=== PATIENT | female | born 1940 | race Caucasian/White ===

== ENCOUNTER 2016-10-13 12:21 | Day surgery (SDC) | payer MEDICARE, OTHER ==
[~2016-10-13 12:21] MED LIST: ACETAMINOPHEN 325 MG TABLET PO PRN; ACETYLCHOLINE CHLORIDE 20 DROP KIT IO PRN; BUPIVACAINE HCL/PF 30 ML VIAL IJ PRN; CYCLOPENTOLATE HCL 20 DROP BTL RIGHTEYE PRN; DEXTROSE 5%-0.5 NORMAL SALINE 1,000 ML IV PRN; EPINEPHrine 1 MG/ML AMPUL IO PRN; HYALURONATE SODIUM 0.4 ML DISP.SYRIN IO PRN; HYALURONATE SODIUM 0.85 ML DISP.SYRIN IO PRN; LIDOCAINE HCL/PF 200 MG/5 ML AMPUL TP PRN; LIDOCAINE HCL/PF 5 ML VIAL IO PRN; NORMAL SALINE 3 ML BOX IV PRN; TETRACAINE HCL 150 DROP BTL OP PRN
--- OUTSIDE RECORDS SUMMARY | 2016-10-13 12:25 | XMS REPORT | Continuity of Care Document ---
:1940 Author Organization [facility] ([facility]) Address [address] [place] [address] Phone [phone] Care Team Providers Name Role Phone oHlli Hoffman Primary Care Provider [phone] Source Comments This disclosure is being made pursuant to the Care Everywhere program, applicable federal and state laws, and may not contain all informaitonavailable regarding this patient.[facility] ([facility]) Active Allergies and Adverse Reactions Allergen Noted Date Severity Reactions Comments Aloe 09/04/2016 Rash Cat Hair 09/04/2016 Asthma Dust 09/04/2016 OTHER Horse Dander 09/04/2016 Urticaria (Hives) Latex 09/04/2016 Rash Penicillin 09/04/2016 Rash Pollen 09/04/2016 OTHER Sulfa (Sulfonamide Antibiotics) 09/04/2016 Rash Current Medications Prescription Sig. Disp. Refills Start Date End Date Status valsartan-hydrochlo Take 1 tablet 5 08/17/2016 Active rothiazide 160-12.5 by mouth daily. mg per tablet diclofenac 75 mg EC 07/09/2016 Active tablet gabapentin 300 mg TAKE 4 CAPSULES 0 08/05/2016 Active capsule BY MOUTH EVERY 8 HOURS potassium chloride 07/15/2016 Active 10 mEq XR tablet metroNIDAZOLE Apply topically Active (METROGEL) 1 % gel daily. Apply a thin layer to affected area GLUCOSAM/GLUC Active GREENE/MC-CKK-N-GLUC (GLUCOSAMINE COMPLEX PO) RED YEAST RICE PO Active VIT A/VIT C/VIT Active E/ZINC/COPPER (PRESERVISION AREDS PO) CALCIUM Take 2 tablets Active CARBONATE/VITAMIN by mouth. 1200 D3 (CALCIUM + D PO) mg calcium/1000 units Vitamin D omega-3 fish oil w/ Take 1 capsule Active dha & epa 1,200 by mouth 2 (144-216) mg per times daily. capsule methIMAzole 5 mg Take 1.5 60 tablet 2 10/10/2016 Active tablet tablets (7.5 mg total) by mouth daily. methIMAzole 10 mg Take 1 tablet 40 tablet 11 09/08/2016 Discontinued tablet (10 mg total) 7 by mouth daily. Active Problems Problem Noted Date Hyperthyroidism 09/06/2016 Most Recent Encounters Date Type Specialty Providers Description 10/10/2016 Telephone Med Endocrinology Nohemi Cardenas, Dx: Hyperthyroidism (Primary Dx) 10/09/2016 Orders/Notes Diabetes Services Nohemi Cardenas, Dx: Hyperthyroidism 09/24/2016 Hospital Radiology Eddi Hodge MD Dx: Hyperthyroidism Encounter 09/24/2016 [facility] Radiology Mae, Dx: Hyperthyroidism Encounter Obinna Gutierrez MD 09/24/2016 Telephone Med Endocrinology Nohemi Cardenas Dx: Hyperthyroidism (Primary Dx) 09/24/2016 Telephone Med Endocrinology Nohemi Cardenas MD 09/04/2016 Office Visit Pathology Alban Beatty, Chief Comp: Patient MD Reported Reason For Lab Services, Irl Visit 09/04/2016 Office Visit Diabetes Services Alban Beatty, Dx: Hyperthyroidism (Primary Dx) Nohemi Cardenas MD 09/04/2016 Orders/Notes Med Endocrinology Nohemi Cardenas MD Social History Tobacco Use Types Packs/Day Years Used Date Former Smoker Cigarettes 1.5 25 Quit: 03/21/2016 Smokeless Tobacco: Never Used Tobacco Cessation:Counseling Given: Yes Comments: Alcohol Use Drinks/Week oz/Week Comments Yes 1 Glasses of wine 0 Cans of beer 0 Standard drinks or equivalent Last Filed Vital Signs Vital Sign Reading Time Taken Blood Pressure 134/59 09/04/2016 3:36 PM CDT Pulse 69 09/04/2016 3:36 PM CDT Temperature - - Respiratory Rate - - Height 1.702 m (5' 7.01") 09/04/2016 3:36 PM CDT Weight 76.3 kg (168 lb 3.4 oz) 09/04/2016 3:36 PM CDT Body Mass Index 26.34 09/04/2016 3:36 PM CDT Oxygen Saturation - - Plan of Care Date Type Specialty Providers Description 10/17/2016 Appointment Radiology Subj: Upcoming Appt Reminder 10/17/2016 Appointment Radiology Subj: Upcoming Appt Reminder Health Maintenance Due Date Last Done Comments Hepatitis B Vaccine (1 of 3 - Primary Series) 1940 Tdap Vaccine 1953 Lipid Disorder Screening 1960 Td Vaccine 1960 Mammogram 1982 Colonoscopy 07/28/1992 Zoster Vaccine 2002 Osteoporosis Screening (DXA Bone Density) 07/30/2007 Pneumococcal Vaccine (1 of 2 - PCV13) 07/30/2007 Influenza Vaccine: Seasonal (Season Ended) 2016 Results from Last 3 Months EXTERNAL THYROXINE, FREE (FREE T-4) (10/09/2016) Component Value Range Ext Free T4 (Free Thyroxine) 1.14 0.76-1.46 NG/DL EXTERNAL THYROID STIMULATING HORMONE (TSH) (10/09/2016) Component Value Range Ext TSH 0.010(A) 0.358-3.74 UIU/ML EXTERNAL US-STORE& INTERPRET (09/24/2016 5:32 PM) Impressions Findings/impression: Both lobes of thyroid are enlarged and heterogeneous. Right lobe measures 8.6 x 3.8 x 5.1 cm. Left lobe measures 7.9 x 2.9 x 3.9 cm. Isthmus measures 1.5 cm in thickness. There is probable increased vascularity No discrete nodules were seen on the images provided, however, interpretation is limited in absence of real-time evaluation. Recommend in-house real-time evaluation for definitely excluding focal nodules. Narrative Outside film interpretation requested. Exam was performed at 1448 hours on 06/17/2016 at [facility]. 38 images are provided and interpreted onthe in-house dedicated ultrasound PACS. Procedure: External Ultrasound Store and Interpret - thyroid ultrasound Technique: Images are submitted of the thyroid ultrasound,without spectral Doppler analysis.Exam is limited by imaging quality and the lack of real-time assessment. Indication: Hyperthyroidism. Comparison: None. Procedure Note Rigoberto, Incoming Imaging Results - ThuSeptember 26, 2016 5:37 PM CDT Outside film interpretation requested. Exam was performed at 1448 hours on 06/17/2016 at [facility]. 38 images are provided and interpreted on the in-house dedicated ultrasound PACS. Procedure: External Ultrasound Store and Interpret - thyroid ultrasound Technique: Images are submitted of the thyroid ultrasound, without spectral Doppler analysis. Exam is limited by imaging quality and the lack of real-time assessment. Indication: Hyperthyroidism. Comparison: None. IMPRESSION Findings/impression: Both lobes of thyroid are enlarged and heterogeneous. Right lobe measures 8.6 x 3.8 x 5.1 cm. Left lobe measures 7.9 x 2.9 x 3.9 cm. Isthmus measures 1.5 cm in thickness. There is probable increased vascularity No discrete nodules were seen on the images provided, however, interpretation is limited in absence of real-time evaluation. Recommend in-house real-time evaluation for definitely excluding focal nodules. EXTERNAL NUC-STORE& INTERPRET (09/24/2016 5:32 PM) Impressions Impression: 1. Findings consistent with multinodular goiter with large cold nodule in right upper lobe of the thyroid. Narrative Procedure: EXTERNAL NUC-STORE & INTERPRET Clinical History: Hyperthyroidism. Compare to US neck to ensure no cold spots. Radiopharmaceutical: 1. I-123 (sodium iodide) 280 microCi PO on 07/03/2016. Technique: Thyroid imaging was performed in anterior & oblique views. Findings: Images show enlarged thyroid gland with heterogeneous distribution of activity with evidence of large cold nodule in right upper lobe. Procedure Note Rigoberto, Incoming Imaging Results - ThuSeptember 26, 2016 2:33 PM CDT Procedure: EXTERNAL NUC-STORE & INTERPRET Clinical History: Hyperthyroidism. Compare to US neck to ensure no cold spots. Radiopharmaceutical: 1. I-123 (sodium iodide) 280 microCi PO on 07/03/2016. Technique: Thyroid imaging was performed in anterior & oblique views. Findings: Images show enlarged thyroid gland with heterogeneous distribution of activity with evidence of large cold nodule in right upper lobe. IMPRESSION Impression: 1. Findings consistent with multinodular goiter with large cold nodule in right upper lobe of the thyroid. TRIIODOTHYRONINE - FREE (09/04/2016 5:03 PM) Component Value Range T3, Free 4.79(H) 2.57-4.43 pg/mL Specimen Blood THYROXINE - FREE (09/04/2016 5:03 PM) Component Value Range Free T4 (Thyroxine) 2.14(H) 0.80-1.80 ng/dL Specimen Blood THYROID STIMULATING HORMONE (09/04/2016 5:03 PM) Component Value Range TSH <0.01(L) 0.27-4.20 IU/mL Specimen Blood THYROID STIMULATING IMMUNOGLOBULIN (09/04/2016 5:03 PM) Component Value Range TSI (Thyroid Stimulating 239(H)Comment: <=122 % Immunoglobulin) An elevated Thyroid Stimulating Hormone (TSH) value above 6 mU /L may produce a weakly positive result Thyroid Stimulating Immunoglobulin (TSI) result (123 percent or greater). INTERPRETIVE INFORMATION: Thyroid Stimulating Immunoglobulin Negative - 122 percent basal activity or less Positive - 123 percent basal activity or greater Positive results (123 percent or greater) are consistent with Graves disease but do not always correlate with the presence and severity of hyperthyroidism. Antibodies to the Thyroid Stimulating Hormone Receptor (TSHR) may be stimulating, blocking or neutral. Stimulating antibodies mimic the action of TSH and may cause hyperthyroidism (Graves disease). This test determines the net effect of all TSHR antibody types present in the serum specimen. Test developed and characteristics determined by [facility]. See Compliance Statement B: [email or web address] Performed by [facility], [address] [place] [id number] [email or web address], Jorge Hawkins MD, Lab. Director Specimen Blood Narrative Specimen Source: Specimen Start Date:
[2016-10-13] MEDS: TROPICAMIDE 150 DROP BTL RIGHTEYE PRN ×3 (13:56→14:29)
[2016-10-13] MEDS: PHENYLEPHRINE HCL 50 DROP BTL RIGHTEYE PRN ×3 (13:56→14:29)
[2016-10-13] MEDS ORDERED: DEXTROSE 5%-0.5 NORMAL SALINE 1,000 ML IV ONE (14:35)
[2016-10-13 16:32] VITALS: BP 120/73
== END 2016-10-13 12:22 | disposition home or self-care (01) ==
LOC: AMB 12:21
PROVIDERS: ATTEND Ophthalmology
PROC: 08RJ3JZ Replacement of Right Lens with Synthetic Substitute, Percutaneous Approach (ICD-10-PCS; principal; 2016-10-13 13:25)
DX: H26.9 Unspecified cataract (principal); I10 Essential (primary) hypertension; E05.90 Thyrotoxicosis, unspecified without thyrotoxic crisis or storm; E78.4 Other hyperlipidemia; L89.92 Pressure ulcer of unspecified site, stage 2; F17.200 Nicotine dependence, unspecified, uncomplicated; Z68.27 Body mass index [BMI] 27.0-27.9, adult

== ENCOUNTER 2017-02-02 10:27 | Day surgery (SDC) | payer MEDICARE, OTHER ==
[~2017-02-02 10:27] MED LIST changes: +CYCLOPENTOLATE HCL 20 DROP BTL LEFTEYE PRN; -CYCLOPENTOLATE HCL 20 DROP BTL RIGHTEYE PRN
[2017-02-02] MEDS: PHENYLEPHRINE HCL 50 DROP BTL LEFTEYE PRN ×3 (10:52→11:32)
[2017-02-02] MEDS: TROPICAMIDE 150 DROP BTL LEFTEYE PRN ×3 (10:52→11:32)
[2017-02-02] MEDS ORDERED: DEXTROSE 5%-0.5 NORMAL SALINE 1,000 ML IV ONE (10:59)
[2017-02-02 13:40] VITALS: BP 133/73
== END 2017-02-02 10:28 | disposition home or self-care (01) ==
LOC: AMB 10:27
PROVIDERS: ATTEND Ophthalmology
PROC: 08RK3JZ Replacement of Left Lens with Synthetic Substitute, Percutaneous Approach (ICD-10-PCS; principal; 2017-02-02 11:25)
DX: H26.8 Other specified cataract (principal); I10 Essential (primary) hypertension; E78.4 Other hyperlipidemia; L89.92 Pressure ulcer of unspecified site, stage 2; Z68.24 Body mass index [BMI] 24.0-24.9, adult

== ENCOUNTER 2019-02-26 15:16 | Observation (INO) ==
[2019-02-26] MEDS ORDERED: ALBUTEROL SULFATE 2.5 MG/0.5 ML VIAL.NEB IH ONE (15:29)
[2019-02-26 15:45] LABS: Hematocrit 30.4 % (37.0-47.0); Hemoglobin 9.8 gm/dL (12.5-16.0); Mean Cell Volume 97.7 fl (78-100); Mean Corpuscular Hemoglobin 31.5 pg (27-31); Mean Corpuscular Hgb Conc 32.2 g/dl (32-36); Mean Platelet Volume 9.2 fl (8-12.5); Neutrophil % 64.1 % (42-75.0); Platelet Count 251 K/mm3 (150-450); Red Blood Count 3.11 M/mm3 (4.2-5.4); Red Cell Distribution Width 12.6 % (11.5-14.0); White Blood Count 9.4 K/mm3 (4.0-10.5)
[2019-02-26] MEDS ORDERED: NORMAL SALINE 1,000 ML IV ONE ×3 (15:45→16:46)
--- NOTE | 2019-02-26 16:46 | ERNOTE ---
Medical Problem HPI - Narrative Date of Service: 02/26/19 - General Chief Complaint: Laceration Time Seen by Provider: 02/26/19 15:28 Source: patient, EMS Exam Limitations: no limitations - Immun/Allergies/Home Medications Immunizations: IMMUNIZATION HX Immunizations Up to Date Yes History of Influenza Vaccine No Hx Pneumococcal Vaccination No Allergies/Adverse Reactions: Allergies aloe Allergy (Mild, Unverified 02/26/19 16:22) rash Calcium Channel Blocking Agent Dilt Allergy (Mild, Verified 02/26/19 16:22) rash horse dander Allergy (Mild, Verified 02/26/19 16:22) Hives Latex, Natural Rubber Allergy (Mild, Verified 02/26/19 16:22) localized rash Penicillins Allergy (Mild, Verified 02/26/19 16:22) rash Sulfa (Sulfonamide Antibiotics) Allergy (Mild, Verified 02/26/19 16:22) RASH cat dander Adverse Reaction (Intermediate, Verified 02/26/19 16:22) Can lead to asthma attack pollen extracts Adverse Reaction (Mild, Verified 02/26/19 16:22) sneezing, redness to eyes, nasal drip dust Adverse Reaction (Mild, Uncoded 02/26/19 16:22) sneezing, redness to eye rubber Adverse Reaction (Mild, Uncoded 02/26/19 16:22) LUMP IN ARM Home Medications: HOME MEDICATIONS EPINEPHrine [Epipen 2-Navi] 0.3 mg IM ONCE PRN 05/13/15 [Last Taken Unknown] Red Yeast Rice Extract [Red Yeast Rice] 600 mg PO BID 05/13/15 [Last Taken Unknown] metroNIDAZOLE [Metronidazole 0.75% Cream] 1 appl TP BID PRN 05/13/15 [Last Taken Unknown] Albuterol Sulfate [Albuterol Sulfate 0.63 MG/3ML] 0.63 mg IH Q4H PRN 10/10/16 [Last Taken Unknown] Albuterol Sulfate [Proair Hfa] 2 puff IH Q4H PRN 10/10/16 [Last Taken Unknown] Calcium Citrate/Vitamin D3 [Citracal + D Maximum Caplet] 2 each PO BID 10/10/16 [Last Taken Unknown] Diclofenac Sodium [Voltaren] 50 mg PO BID 10/10/16 [Last Taken 10/13/16 08:00] Gabapentin [Neurontin] 600 mg PO DAILY 10/10/16 [Last Taken 10/13/16 08:00] [place]-3 Fatty Acids/Fish Oil [Fish Oil 1,000 mg Capsule] 1 each PO BID 10/10/16 [Last Taken Unknown] Methimazole [Tapazole] 5 mg PO DAILY 01/30/17 [Last Taken Unknown] Amitriptyline HCl [Elavil] 20 mg PO HS 02/26/19 [Last Taken Unknown] Glucosamine/D3/Boswellia Machelle [Osteo Bi-Flex Caplet] 1 ea PO DAILY 02/26/19 [Last Taken Unknown] Losartan Potassium [Cozaar] 25 mg PO DAILY 02/26/19 [Last Taken Unknown] - History of Present History Narrative: patient presents to ed with c/o puncture wound left lower extremity, was carrying out trash and something from trash puncturelower leg patient relates she lost a lot of blood, compression dressing with tournicat placed by emspatient also with anxiety c/o sob, has hx of asthma Timing: constant Severity: moderate Modifying Factors - (Improves): Present: other - nothing Modifying Factors - (Worsens): Present: other - nothing Review of Systems - Review of Systems Constitutional: Present: See HPI EYE: Present: no symptoms reported ENT: Present: no symptoms reported Respiratory: Present: See HPI, shortness of breath, wheezing Cardiology: Present: no symptoms reported Gastrointestinal/Abdominal: Present: no symptoms reported Genitourinary: Present: no symptoms reported Musculoskeletal: Present: See HPI Skin: Present: no symptoms reported Neurological: Present: no symptoms reported Endocrine: Present: no symptoms reported Hematologic/Lymphatic: Present: no symptoms reported Psych: Present: no symptoms reported Medical History (Last Reviewed 02/26/19 @ 18:44 by Leticia Florez RN) Asthma Chronic pain HLD (hyperlipidemia) HTN (hypertension) Old torn meniscus of knee 1972 Osteoarthritis Pinched nerve Seasonal allergies Surgical History: Surgical History (Last Reviewed 02/26/19 @ 18:44 by Leticia Florez RN) History of hip replacement bilateral Hx of tonsillectomy Social History: (Last Reviewed 02/26/19 @ 18:44 by eLticia Florez RN) Social History: chcf: No lives independently: Yes household members: spouse number of children: 3 number of grandchildren: 3 number of grandchildren comment: with one parent marital status: Highest education level completed: some college, no degree Tobacco: Smoking Status: Current every day smoker Alcohol: alcohol intake: current Alcohol type: wine alcohol intake frequency: holiday/special occasion Substance Use: substance use type: does not use Physical Exam - Physical Exam General Appearance: Present: mild distress, anxious Head Exam: Present: normal inspection, no evidence of injury Eye Exam: Normal inspection: bilateral, PERRL: bilateral, EOMI: bilateral Ears, Nose, Throat: Present: normal ENT inspection, normal pharynx Neck: Present: normal inspection, nontender Respiratory: Present: wheezing Cardiovascular/Chest: Present: regular rate, rhythm, no murmur, normal peripheral pulses Gastrointestinal/Abdominal: Present: normal bowel sounds, nontender, nondistended, soft, no organomegaly Back Exam: Present: normal inspection, normal range of motion, no CVA tenderness, no vertebral tenderness Extremity Exam: Present: normal except - - puncture wound to anterior ankle when tounicat removed josué bleeding at present Neurological Exam: Present: alert, oriented, normal mood/affect, no motor/sensory deficits Skin Exam: Present: normal color, warm/dry Lymphatic Exam: Present: no adenopathy Progress - Date and Time Seen: Date and Time: 02/26/19 19:[address] martinez accepted for admissiion to observstion, to tranfuse two units prbcs - Results and Orders Patient's Lab Results:: I have reviewed the patient's lab results. - Vital Signs Patient's Vital Signs:: I have reviewed the patient's vital signs. Vital Signs: Vital Signs 02/26/19 15:20 02/26/19 15:24 02/26/19 15:46 Pulse Rate 101 H 86 86 Respiratory Rate 22 H 20 20 Blood Pressure 88/67 L 88/67 L O2 Sat by Pulse Oximetry 99 96 96 02/26/19 15:54 02/26/19 16:24 Pulse Rate 94 80 Respiratory Rate 20 18 Blood Pressure 70/44 L 65/40 L O2 Sat by Pulse Oximetry 95 97 - X-Ray X-Ray #1 X-Ray: leg Interpretation: Interp. by me - no foreign body - Progress/Reassessment Chief Complaint: Laceration - Transfer of Care Additional Notes: patient stood up to obtain orthos and restarted bleeding fom wound, lidocaine local infused to give blood units packed rbcs Plan - Plan Plan: to admit to observation for tranfuse blood Departure Clinical Impression: Anemia - Departure Disposition: Still a patient Condition: Stable Referrals: Holli Hoffman CNP [Primary Care Provider] -
[2019-02-26 17:38] LABS: Hemoglobin 7.6 gm/dL (12.5-16.0)
[2019-02-26] MEDS ORDERED: AMITRIPTYLINE HCL 10 MG TABLET ONE (22:01)
[2019-02-26] MEDS: GABAPENTIN 600 MG TABLET PO SCH (22:08)
[2019-02-27] MEDS ORDERED: ALBUTEROL SULFATE 2.5 MG/0.5 ML VIAL.NEB IH PRN ×2 (00:30→07:30)
--- NOTE | 2019-02-27 00:30 | HP ---
Chief Complaint - Chief Complaint Date of Service: 02/27/19 Time of Service: 00:30 Chief Complaint: bleeding varicosity History of Present Illness: 78 year old female with hx of severe varicosity and likely PVD presented to the ER for LLE bleeding after bumping her leg at home. Bleeding was profuse and required sutures, cauterization, and pressure bandage. Her initial hemoglobin was 9.8 but dropped to 7.6 . Patient was admitted in order to be transfused 2 units PRBC. Her vitals were stable and she felt well otherwise. Medical History (Last Updated 02/26/19 @ 22:45 by Tracey Fontaine RN) Asthma Chronic pain Eczema HLD (hyperlipidemia) HTN (hypertension) Old torn meniscus of knee 1972 Osteoarthritis Pinched nerve Seasonal allergies Surgical History: Surgical History (Last Reviewed 02/26/19 @ 21:15 by Tracey Fontaine RN) History of hip replacement bilateral Hx of tonsillectomy Social History: (Last Reviewed 02/26/19 @ 22:31 by Tracey Fontaine RN) Social History: custodial: No lives independently: Yes household members: spouse number of children: 3 number of grandchildren: 3 number of grandchildren comment: with one parent marital status: Highest education level completed: some college, no degree Tobacco: Smoking Status: Current every day smoker Alcohol: alcohol intake: current Alcohol type: wine alcohol intake frequency: holiday/special occasion Substance Use: substance use type: does not use Review Of Systems (GEN) - Review of Systems Generalized/Overall Review: Absent: Weakness, Chills, Fever EENTM: Present: No Symptoms Reported Respiratory: Present: Shortness of Breath. Absent: Cough Cardiac: Absent: Chest Pain, Edema Abdominal: Present: No Symptoms Reported Genitourinary: Present: No Symptoms Reported Musculoskeletal: Present: No Symptoms Reported Neurological: Present: No Symptoms Reported Skin: Present: Lesions - nonbleeding ulcers in ankle creases bilat Endocrine: Present: No Symptoms Reported Immunizations: IMMUNIZATION HX Immunizations Up to Date Yes History of Influenza Vaccine No Hx Pneumococcal Vaccination No Allergies/Adverse Reactions: Allergies Allergy/AdvReac Type Severity Reaction Status Date / Time aloe Allergy Mild rash Verified 02/27/19 06:26 Calcium Channel Blocking Allergy Mild rash Verified 02/27/19 06:26 Agent Dilt horse dander Allergy Mild Hives Verified 02/27/19 06:26 Latex, Natural Rubber Allergy Mild localized Verified 02/27/19 06:26 rash Penicillins Allergy Mild rash Verified 02/27/19 06:26 Sulfa (Sulfonamide Allergy Mild RASH Verified 02/27/19 06:26 Antibiotics) cat dander AdvReac Intermediate Can lead Verified 02/27/19 06:26 to asthma attack pollen extracts AdvReac Mild sneezing, Verified 02/27/19 06:26 redness to eyes, nasal drip dust AdvReac Mild sneezing, Uncoded 02/27/19 06:26 redness to eye rubber AdvReac Mild LUMP IN ARM Uncoded 02/27/19 06:26 Home Medications: HOME MEDICATIONS EPINEPHrine [Epipen 2-Navi] 0.3 mg IM ONCE PRN 05/13/15 [Last Taken Unknown] Red Yeast Rice Extract [Red Yeast Rice] 600 mg PO BID 05/13/15 [Last Taken Unknown] metroNIDAZOLE [Metronidazole 0.75% Cream] 1 appl TP BID PRN 05/13/15 [Last Taken Unknown] Albuterol Sulfate [Proair Hfa] 2 puff IH Q4H PRN 10/10/16 [Last Taken Unknown] Calcium Citrate/Vitamin D3 [Citracal + D Maximum Caplet] 2 each PO BID 10/10/16 [Last Taken Unknown] Diclofenac Sodium [Voltaren] 50 mg PO BID 10/10/16 [Last Taken 10/13/16 08:00] Gabapentin [Neurontin] 1,200 mg PO TID 10/10/16 [Last Taken 10/13/16 08:00] [place]-3 Fatty Acids/Fish Oil [Fish Oil 1,000 mg Capsule] 1 each PO BID 10/10/16 [Last Taken Unknown] Methimazole [Tapazole] 5 mg PO DAILY 01/30/17 [Last Taken Unknown] Amitriptyline HCl [Elavil] 20 mg PO HS 02/26/19 [Last Taken Unknown] Glucosamine/D3/Boswellia Machelle [Osteo Bi-Flex Caplet] 1 ea PO DAILY 02/26/19 [Last Taken Unknown] Losartan Potassium [Cozaar] 25 mg PO DAILY 02/26/19 [Last Taken Unknown] Exam - Exam Vital Signs: Vital Signs - Last Taken Temp 36.8 C 02/27/19 00:16 Pulse 60 02/27/19 00:16 Resp 18 02/27/19 00:16 BP 98/43 02/27/19 00:16 Pulse Ox 93 02/27/19 00:16 Constitutional: Present: Alert, Oriented x3, Cooperative ENT Exam: Present: hearing grossly normal. Absent: nasal congestion, nasal drainage Eye Exam: bilateral eye: normal inspection, EOMI Neck: Present: non-tender, supple Respiratory: Present: lungs clear, normal breath sounds. Absent: wheezing Cardiovascular/Chest: Present: regular rate, rhythm, no murmur Peripheral Pulses: dorsalis-pedis (R): 1+, dorsalis-pedis (L): 1+ Abdomen: Present: Normal bowel sounds, soft, nontender /Rectal: Present: Exam deferred Extremity: Present: other - pressure bandage LLE over ankle Skin Exam: Present: other - multiple 1 cm diameter stage 2 ulcers in creases of anterior ankles, non blleeding Neurologic: Present: alert, oriented x 3 Appearance: Present: appropriate appearance, appropriate insight Eye contact: Present: cooperative, good eye contact, normal speech Thoughts: Present: normal thought pattern, normal mood /affect Diagnostic Studies: Abnormal Lab Results 02/26/19 02/26/19 02/26/19 Range/Units 15:35 15:37 17:30 RBC 3.11 L (4.2-5.4) M/mm3 Hgb 9.8 L 7.6 L* D (12.5-16.0) gm/dL Hct 30.4 L 23.0 L* D (37.0-47.0) % MCH 31.5 H (27-31) pg Immature Gran % (Auto) 0.60 H (0.001-0.429) % Immature Gran # (Auto) 0.06 H (0.000-0.0310) K/mm3 Monocytes % 9.9 H (0.0-9) % Eosinophils % 3.3 H (0.0-3.0) % Crossmatch See Detail Laboratory Results WBC 9.4 K/mm3 (4.0-10.5) 02/26/19 15:35 RBC 3.11 M/mm3 (4.2-5.4) L 02/26/19 15:35 Hgb 7.6 gm/dL (12.5-16.0) L* D 02/26/19 17:30 Hct 23.0 % (37.0-47.0) L* D 02/26/19 17:30 MCV 97.7 fl (78-100) 02/26/19 15:35 MCH 31.5 pg (27-31) H 02/26/19 15:35 MCHC 32.2 g/dl (32-36) 02/26/19 15:35 RDW 12.6 % (11.5-14.0) 02/26/19 15:35 Plt Count 251 K/mm3 (150-450) 02/26/19 15:35 MPV 9.2 fl (8-12.5) 02/26/19 15:35 Immature Gran % (Auto) 0.60 % (0.001-0.429) H 02/26/19 15:35 Immature Gran # (Auto) 0.06 K/mm3 (0.000-0.0310) H 02/26/19 15:35 Neutrophils % 64.1 % (42-75.0) 02/26/19 15:35 Lymphocytes % 21.4 % (20-51) 02/26/19 15:35 Monocytes % 9.9 % (0.0-9) H 02/26/19 15:35 Eosinophils % 3.3 % (0.0-3.0) H 02/26/19 15:35 Basophils % 0.7 % (0.0-1.0) 02/26/19 15:35 Nucleated RBC % 0.0 k/mm3 (0-1) 02/26/19 15:35 Neutrophils # 6.0 K/mm3 (1.3-6.0) 02/26/19 15:35 Lymphocytes # 2.01 k/mm3 (1.5-3.5) 02/26/19 15:35 Monocytes # 0.9 k/mm3 (0.0-1.0) 02/26/19 15:35 Eosinophils # 0.3 k/mm3 (0.0-0.7) 02/26/19 15:35 Absolute Basophils 0.1 k/mm3 (0.0-0.1) 02/26/19 15:35 Blood Type A Positive 02/26/19 15:37 Antibody Screen Negative 02/26/19 15:37 Crossmatch See Detail 02/26/19 15:37 Assessment/Plan - Narrative Narrative: Patient placed in observation in order to be transfused 2 units PRBC. She feels well and her VS are stable. Will recheck hemogram in the AM. Likely home in tomorrow. Wound is closed and hemostatic currently. Chronic meds restarted. Reg diet. No dvt PPX due to short stay. Patient will need abdias bilat as well as wound care in the outpatient. She will discuss this with her PCP when she follows up with her. Nurse to call with questions or concerns. - Assessment/Plan (1) Bleeding from wound Problem: Acute (2) Anemia Problem: Acute (3) Stage II pressure ulcer of ankle Problem: Acute
[2019-02-27 06:45] LABS: Hematocrit 29.1 % (37.0-47.0); Mean Cell Volume 94.2 fl (78-100); Mean Corpuscular Hemoglobin 32.4 pg (27-31); Mean Corpuscular Hgb Conc 34.4 g/dl (32-36); Mean Platelet Volume 8.7 fl (8-12.5); Platelet Count 147 K/mm3 (150-450); Red Blood Count 3.09 M/mm3 (4.2-5.4); Red Cell Distribution Width 13.9 % (11.5-14.0); White Blood Count 10.9 K/mm3 (4.0-10.5)
[2019-02-27] MEDS: GABAPENTIN 600 MG TABLET PO SCH ×2 (08:58→13:21)
[2019-02-27] MEDS ORDERED: GABAPENTIN 300 MG CAPSULE PO SCH (09:00)
[2019-02-27] MEDS ORDERED: LOSARTAN POTASSIUM 50 MG TABLET PO SCH (09:00)
[2019-02-27] MEDS ORDERED: METHIMAZOLE 10 MG TABLET PO SCH (09:00)
--- NOTE | 2019-02-27 14:02 | DS ---
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 Hemostasis achieved with sutures, cauterization, and pressure bandage. She was transfused 2 units and her hemoglobin improved from 7.6 to 10.0. She otherwise has felt well and her VS have been stable, she has been afebrile. No changes to her chronic meds. Again advised her to follow up with her PCP to be evaluated for PVD. She will also need to be referred to wound care which she states she will also discuss with her PCP. Procedures Performed: none Results and Findings: Lab Pending Results 02/26/19 15:35: WBC 9.4, RBC 3.11 L, Hgb 9.8 L, Hct 30.4 L, MCV 97.7, MCH 31.5 H, MCHC 32.2, RDW 12.6, Plt Count 251, MPV 9.2, Immature Gran % (Auto) 0.60 H, Immature Gran # (Auto) 0.06 H, Neutrophils % 64.1, Lymphocytes % 21.4, Monocytes % 9.9 H, Eosinophils % 3.3 H, Basophils % 0.7, Nucleated RBC % 0.0, Neutrophils # 6.0, Lymphocytes # 2.01, Monocytes # 0.9, Eosinophils # 0.3, Absolute Basophils 0.1 02/26/19 15:37: Blood Type A Positive, Antibody Screen Negative, Crossmatch See Detail 02/26/19 17:30: Hgb 7.6 L* D, Hct 23.0 L* D 02/27/19 06:40: WBC 10.9 H, RBC 3.09 L, Hgb 10.0 L, Hct 29.1 L, MCV 94.2, MCH 32.4 H, MCHC 34.4, RDW 13.9, Plt Count 147 L, MPV 8.7 Discharge Location: Home Disposition: Home self-care Condition: Stable Discharge Activity: Activity as tolerated Discharge Diet: General/regular food Referrals: Holli Hoffman, [employer] [Primary Care Provider] - One Week Problem Oriented Discharge Instructions to Patient/Family: Stitches, Erlin, or Adhesive Wound Closure, [id number], Blood Transfusion, Care After Complete Home Medications List: Complete Home Medication List: EPINEPHrine [Epipen 2-Navi] 0.3 mg IM ONCE PRN 05/13/15 Red Yeast Rice Extract [Red Yeast Rice] 600 mg PO BID 05/13/15 metroNIDAZOLE [Metronidazole 0.75% Cream] 1 appl TP BID PRN 05/13/15 Albuterol Sulfate [Proair Hfa] 2 puff IH Q4H PRN 10/10/16 Calcium Citrate/Vitamin D3 [Citracal + D Maximum Caplet] 2 each PO BID 10/10/16 Diclofenac Sodium [Voltaren] 50 mg PO BID 10/10/16 Gabapentin [Neurontin] 1,200 mg PO TID 10/10/16 [place]-3 Fatty Acids/Fish Oil [Fish Oil 1,000 mg Capsule] 1 each PO BID 10/10/16 Methimazole [Tapazole] 5 mg PO DAILY 01/30/17 Amitriptyline HCl [Elavil] 20 mg PO HS 02/26/19 Glucosamine/D3/Boswellia Machelle [Osteo Bi-Flex Caplet] 1 ea PO DAILY 02/26/19 Losartan Potassium [Cozaar] 25 mg PO DAILY 02/26/19
[2019-02-27 16:08] VITALS: BP 132/60
--- NOTE | 2019-02-27 16:25 | PN ---
Rafi Note - Interim Date: 02/27/19 Time: 05:45 Narrative: 02/27/19 16:23 Was asked to see the patient by case management prior to her leaving. Her wound was inspected, and there is no active bleeding. Discussed following up with her PCP regarding ABIs and wound care consult as per Dr. Aranda. 02/27/19 16:24
[2019-02-27] MEDS ORDERED: AMITRIPTYLINE HCL 10 MG TABLET PO SCH ×2 (21:00)
== END 2019-02-27 16:34 | disposition home or self-care (01) ==
LOC: ER 15:16 → MS 15:16
PROVIDERS: ADMIT Family Medicine; ATTEND Family Medicine
CPT/HCPCS: 36415; 36430; 73610; 85014; 85018; 85025; 85027; 86850; 93005; 94640; 94664; 99285; G0378; P9016